=== PATIENT | female | born 2000 | race Caucasian/White ===

== ENCOUNTER 2023-11-01 14:13 | Inpatient (IN) | payer OTHER, SELFPAY ==
--- NOTE | ~2023-11-01 | CT_ITS ---
EXAMINATION: CT ABDOMEN AND PELVIS WITHOUT CONTRAST CLINICAL INFORMATION: Lower abdominal pain COMPARISON: None available. TECHNIQUE: Multidetector volumetric imaging was performed from the superior aspect of the liver through the pubic symphysis. Sagittal and coronal reformatted images were obtained on the technologist's workstation. This CT examination was performed using dose optimization techniques as appropriate, variously including the following: *Automated exposure control *Adjustment of mA and/or kV according to patient size (this includes techniques or standardized protocols for targeted exams where dose is matched to indication/reason for exam; i.e. extremities or head) *Use of iterative reconstruction technique DLP: 594 mGy-cm FINDINGS: LUNG BASES: The visualized lung bases are unremarkable. LIVER, GALLBLADDER, AND BILIARY TREE: The liver is normal in size, shape, and attenuation. No focal hepatic lesion or biliary ductal dilatation is present. The gallbladder is unremarkable with no evidence of radiopaque gallstones, gallbladder wall thickening, or obvious pericholecystic inflammatory changes. PANCREAS: Unremarkable. SPLEEN: Unremarkable. ADRENAL GLANDS: Unremarkable. KIDNEYS AND URETERS: The kidneys are normal in size, shape, and attenuation. No hydronephrosis, hydroureter, or calculi seen. No perinephric stranding. BLADDER: Unremarkable. GASTROINTESTINAL TRACT: There is abnormal rotation of the bowel. The cecum is located in the left mid abdomen. There are abnormal loops of small bowel. There are dilated fluid-filled loops of small bowel. There is fecalalization of proximal small bowel There are areas of small bowel wall thickening. There is edematous change in the small bowel mesentery. There are upper normal-size small bowel mesentery lymph nodes. Small amount of fluid in the pelvis. Large bowel is normal appearing. Appendix is seen.. ABDOMINAL WALL: No significant hernia is appreciated. LYMPH NODES: Normal. VASCULAR: Unremarkable. PELVIC VISCERA: Unremarkable. OSSEOUS STRUCTURES: Unremarkable. CT/CT abdomen pelvis wo IV con IMPRESSION: Abnormal small bowel. Small bowel is dilated, fluid-filled with small bowel feces sign. There are areas of wall thickening of the small bowel, edematous change in the small bowel mesentery and upper normal-size small bowel mesentery lymph nodes. This probably represents enteritis. Partial small bowel obstruction cannot be excluded and imaging follow-up recommended. Abnormal bowel rotation with the cecum located in the left mid abdomen. Fleischner guidelines were followed.
--- NOTE | ~2023-11-01 | CT_ITS ---
EXAMINATION: CT ABDOMEN AND PELVIS WITH CONTRAST CLINICAL INFORMATION: Rule out complete small bowel obstruction COMPARISON: CT abdomen and pelvis 11/01/2023 TECHNIQUE: Multidetector volumetric images were obtained from the superior aspect of the liver through the pubic symphysis following administration 85 mL of Omnipaque 350 intravenous contrast. Sagittal and coronal reformatted images were obtained on the technologist's workstation. Oral contrast: Yes This CT examination was performed using dose optimization techniques as appropriate, variously including the following: *Automated exposure control *Adjustment of mA and/or kV according to patient size (this includes techniques or standardized protocols for targeted exams where dose is matched to indication/reason for exam; i.e. extremities or head) *Use of iterative reconstruction technique DLP: 648 mGy-cm FINDINGS: LUNG BASES: The visualized lung bases are unremarkable. LIVER, GALLBLADDER, AND BILIARY TREE: The liver is normal in size, shape, and attenuation. No focal hepatic lesion or biliary ductal dilatation is present. The gallbladder is unremarkable with no evidence of radiopaque gallstones, gallbladder wall thickening, or obvious pericholecystic inflammatory changes. PANCREAS: Unremarkable. SPLEEN: Unremarkable. ADRENAL GLANDS: Unremarkable. KIDNEYS AND URETERS: The kidneys are normal in size, shape, and attenuation. No hydronephrosis, hydroureter, or calculi seen. No perinephric stranding. BLADDER: Unremarkable. GASTROINTESTINAL TRACT: Again there is abnormal rotation of the bowel with the cecum located in the left lower quadrant. There is marked thickening of multiple loops of small bowel in the right lower quadrant and pelvis. Contrast passes distally into the cecum. ABDOMINAL WALL: No significant hernia is appreciated. LYMPH NODES: Prominent mesenteric lymph nodes are again seen. Small volume of fluid in the pelvis. VASCULAR: Unremarkable. PELVIC VISCERA: Unremarkable. OSSEOUS STRUCTURES: Unremarkable. CT/CT abdomen pelvis w IV con IMPRESSION: 1. Again there is malrotation of the bowel without complete bowel obstruction. Contrast passes into the cecum which is in the left lower quadrant. 2. Markedly thickened loops of small bowel in the right lower quadrant and prominent mesenteric lymph nodes, consistent with enteritis. Fleischner guidelines were followed.
[2023-11-01 14:39] VITALS: BP 143/80; PULSE 98; RESP 16; TEMP 37.2; O2SAT 99; BMI 30.5
--- NOTE | 2023-11-01 14:40 | ED.ABDPAIN ---
HPI - Abdominal Pain General Chief Complaint: Abdominal Pain Stated Complaint: Severe abd pain Time Seen by Provider: 11/01/23 21:52 Source: patient Mode of arrival: ambulatory Limitations: no limitations History of Present Illness HPI narrative: Patient with history of Gastroschisis usually have regular bowel movements for last 4 days been feeling constipated with diffuse abdominal pain no nausea no vomiting no urinary symptoms was seen at urgent care center started on laxative without much relief patient has difficulty in walking because of pain pain is mostly diffuse more on the left side patient has been having diarrhea since started taking MiraLax for last 2 days had slight nausea but feels hungry Related Data Allergies Allergy/AdvReac Type Severity Reaction Status Date / Time No Known Allergies Allergy Unverified 11/01/23 14:39 Review of Systems Review of Systems Yes all other systems are reviewed and are negative [facility] Past Medical History Medical History Gastroschisis Social History Social History Alcohol intake: current Alcohol intake frequency: a few times a week Alcohol type: wine Smoked in Last 30 Days: No Use of substances other than those prescribed or required for medical reasons: No Advance Directives: No Advance Directives Information Provided: No Patient : No Physical Exam ED Vital Signs: Vital Signs - 24 hr 11/01/23 14:39 11/01/23 22:08 Temperature 98.9 F 99.0 F Pulse Rate 98 74 Respiratory Rate 16 17 Blood Pressure 143/80 H 131/74 Pulse Oximetry 99 99 Oxygen Delivery Method Room Air Room Air BMI result Body Mass Index 30.5 Appearance: Alert. Oriented X3. No acute distress. Eyes: PERRLA, No Nystagmus ENT: Pharynx normal. Oral Mucosa moist Neck: Normal inspection. Neck supple. CVS: Normal heart rate and rhythm. Pulses normal. Respiratory: No respiratory distress. Equal air entry bilateral, no wheezing/rales/rhonchi Abdomen: Soft, diffuse tenderness lower abdomen rebound tenderness no guarding Bowel sounds are present, no mass palpable, no CVA tenderness Skin: Skin warm and dry. Normal skin color. Normal skin turgor. Extremities: No lower extremity edema. No calf tenderness Neuro: Oriented X 3. Course Course Course Narrative: This is a rapid medical exam. Deferred additional HPI, ROS, PE to primary provider. 23 yo female here with complaints of lower abdominal pain since Sunday w/ constipation, Took laxative and using miralax but only having small BM. No vomiting, fever, urinary symptoms, vaginal discharge. LMP last week Low suspicion for /STI Will need labs, UA, ur preg VSS Medical Decision Making Medical Decision Making [facility] Narrative: Patient with nonspecific abdominal pain with CT scan showing edematous small bowel with partial bowel obstruction case discussed with Dr. Benjamin surgeon will admit the patient for observation. Differential Diagnosis Differential Diagnoses: The differential diagnosis associated with the presentation includes Colitis/ileus/viral syndrome Admission/Observation Consideration of admission/observation: Escalation of care including admission/observation considered Consult Healthcare Provider Management of the patient was discussed with: Radio Program Director Surgeon Dr. Benjamin Lab Data [facility] Lab Attestation statement: I reviewed the patient's lab results. 11/01/23 15:27 11/01/23 15:27 Labs: Lab Results 11/01/23 11/01/23 Range/Units 15:27 21:53 WBC 10.9 H (4.8-10.8) X10*3/uL RBC 4.60 (4.20-5.50) X10*6/uL Hgb 13.7 (12.0-16.0) g/dl Hct 40.6 (37.0-47.0) % MCV 88.3 (80.0-98.0) fL MCH 29.8 (27.0-33.0) pg MCHC 33.7 (31.0-35.0) g/dl RDW 12.7 (11.0-16.0) % Plt Count 163 (160-400) X10*3/uL MPV 13.0 H (9.4-12.3) fL Immature Gran % (Auto) 0.2 (0.0-0.4) % Neut % (Auto) 76.0 H (45-73) % Lymph % (Auto) 16.6 L (20-40) % Banks % (Auto) 6.0 (2-11) % Eos % (Auto) 1.0 (0-4) % Baso % (Auto) 0.2 (0-2) % Lymph # (Auto) 1.8 (1.2-4.9) X10*3/uL [place] # (Auto) 0.7 (0.1-1.2) X10*3/uL Eos # (Auto) 0.1 (0.0-0.4) X10*3/uL Baso # (Auto) 0.0 (0.0-0.2) X10*3/uL Abs Immat Gran (auto) 0.02 (0.00-0.03) X10*3/uL Absolute Neuts (auto) 8.3 (2.0-8.3) x10*3/uL Absolute Nucleated RBC 0.000 (0.0-0.012) X10*3/uL Nucleated RBC % (auto) 0.0 (0.0-0.2) /100WBC Sodium 139 (135-145) mmol/L Potassium 4.1 (3.3-5.1) mmol/L Chloride 100 (96-108) mmol/L Carbon Dioxide 25 (22-29) mmol/L Anion Gap 18 (12-20) BUN 7 L (9-16) mg/dL Creatinine 0.77 (0.5-1.4) mg/dL Estim Creat Clear Calc 127.5 Estimated GFR > 60 Random Glucose 81 (60-115) mg/dL Calcium 9.7 (8.4-10.2) mg/dL Total Bilirubin 0.8 (0.0-1.0) mg/dL Direct Bilirubin 0.3 (0.0-0.5) mg/dL AST 14 (5-31) U/L ALT 9 (0-31) U/L Alkaline Phosphatase 44 (39-117) U/L Total Protein 8.2 H (6.5-8.0) g/dL Albumin 4.6 (3.5-5.0) g/dL Urine Color Yellow Urine Appearance Clear Urine pH 5.5 (5.0-9.0) Ur Specific [place] 1.020 (1.005-1.025) Urine Protein Negative (Neg-Trace) mg/dL Urine Glucose (UA) Negative (Negative) mg/dL Urine Ketones Negative (Negative) mg/dL Urine Blood Large (3+) H (Negative) Urine Nitrite Negative (Negative) Ur Leukocyte Esterase Negative (Negative) Urine RBC >20 H (0-2) /HPF Urine WBC 0-5 (0-5) /HPF Ur Squamous Epith Cells 0-2 (0-2) /HPF Urine Bacteria None Seen (None Seen) Hyaline Casts 0-2 (0-2) /LPF Urine Test NEGATIVE (NEGATIVE) Independent Interpretation I performed an independent interpretation of an: CT Scan Radiology Impression Discussion of test interpretation with radiology: I have reviewed the radiologist's reading. Radiologist Impression: CT/CT abdomen pelvis wo IV con IMPRESSION: Abnormal small bowel. Small bowel is dilated, fluid-filled with small bowel feces sign. There are areas of wall thickening of the small bowel, edematous change in the small bowel mesentery and upper normal-size small bowel mesentery lymph nodes. This probably represents enteritis. Partial small bowel obstruction cannot be excluded and imaging follow-up recommended. Abnormal bowel rotation with the cecum located in the left mid abdomen. Fleischner guidelines were followed. Medications Administered Generic Name Dose Route Start Last Admin Trade Name Freq PRN Reason Stop Dose Admin Acetaminophen 1,000 mg in 100 mls @ 400 mls/hr 11/01/23 23:45 11/02/23 00:48 Ofirmev IV 11/02/23 17:59 400 mls/hr Q6H YEHUDA Administration Dextrose/Lactated Ringer's 1,000 mls @ 100 mls/hr 11/01/23 23:45 11/02/23 00:51 D5lr IVCONT 100 mls/hr .Q10H YEHUDA Administration Sodium Chloride 3 ml 11/02/23 00:00 11/02/23 00:55 0.9 % Sodium Chloride Flush 3 Ml Syringe IVFLUSH Not Given QSHIFT [facility] Discharge Plan Discharge Clinical Impression: Partial obstruction of small intestine Patient Disposition: Admitted As Inpatient
[2023-11-01 15:32] LABS: MANUAL DIFF FLAG NO
[2023-11-01 15:46] LABS: Alanine Aminotransferase 9 U/L (0-31); Albumin Level 4.6 g/dL (3.5-5.0); Alkaline Phosphatase 44 U/L (39-117); Anion Gap 18 (12-20); Aspartate Amino Transferase 14 U/L (5-31); Bilirubin Direct 0.3 mg/dL (0.0-0.5); Bilirubin Total 0.8 mg/dL (0.0-1.0); Blood Urea Nitrogen 7 mg/dL (9-16); Calcium 9.7 mg/dL (8.4-10.2); Carbon Dioxide 25 mmol/L (22-29); Chloride 100 mmol/L (96-108); Creatinine Clr Calc Pharmacy 127.5; Estimated Glomerular Filt Rate > 60; Glucose Random 81 mg/dL (60-115); Potassium 4.1 mmol/L (3.3-5.1); Sodium 139 mmol/L (135-145); Total Protein 8.2 g/dL (6.5-8.0)
[2023-11-01 16:35] LABS: Basophils Percent Auto 0.2 % (0-2); Eosinophils Absolute Auto 0.1 X10*3/uL (0.0-0.4); Hematocrit 40.6 % (37.0-47.0); Hemoglobin 13.7 g/dl (12.0-16.0); Imm Gran Abs Auto 0.02 X10*3/uL (0.00-0.03); Imm Gran Pct Auto 0.2 % (0.0-0.4); Lymphocytes Absolute Auto 1.8 X10*3/uL (1.2-4.9); Lymphocytes Percent Auto 16.6 % (20-40); Mean Corpuscular HGB Conc 33.7 g/dl (31.0-35.0); Mean Corpuscular Hemoglobin 29.8 pg (27.0-33.0); Mean Corpuscular Volume 88.3 fL (80.0-98.0); Monocytes Absolute Auto 0.7 X10*3/uL (0.1-1.2); Neutrophils Absolute Auto 8.3 x10*3/uL (2.0-8.3); Platelet Count 163 X10*3/uL (160-400); Red Cell Distribution Width 12.7 % (11.0-16.0); White Blood Count 10.9 X10*3/uL (4.8-10.8)
[2023-11-01 21:59] LABS: Appearance Urine Clear; Color Urine Yellow; Glucose Urine UA Negative (Negative); Leukocyte Esterase Urine Negative (Negative); Nitrite Urine Negative (Negative); PH 5.5 (5.0-9.0); UMIC TRIGGER UACC YES; Urine Blood Large (3+) (Negative); Urine Ketones Negative (Negative); Urine Protein Negative (Neg-Trace)
[2023-11-01 22:01] LABS: UPreg QC Valid YES; Urine Pregnancy NEGATIVE (NEGATIVE)
[2023-11-01 22:04] LABS: Bacteria Urine None Seen (None Seen); Hyaline Casts Urine 0-2 /LPF (0-2); RBC Urine >20 /HPF (0-2); Squamous Epithelial Cell Urine 0-2 /HPF (0-2); WBC Urine 0-5 /HPF (0-5)
[2023-11-01 22:08] VITALS: BP 131/74; PULSE 74; RESP 17; TEMP 37.2; O2SAT 99
--- NOTE | 2023-11-01 22:46 | PC.NURSE ---
Pt aox4 resting at the bedside. No apparent distress noted. VSS. Reports RUQ and LUQ pain. Denies N/V at this time but had a small vomiting episode earlier today. CT-scan done. Pending results. Pt is aware of plan of care.
[2023-11-01 23:51] VITALS: BP 122/61; PULSE 70; RESP 17; TEMP 36.7; O2SAT 99
[2023-11-02] MEDS: Acetaminophen 1,000 MG/100 ML PIGGYBACK 400 MG IV ×4 (00:48→16:44)
[2023-11-02] MEDS: Dextrose 5 % and Lactated Ring 1,000 ML 100 ML IVCONT ×3 (00:51→19:18)
[2023-11-02 01:08] LABS: Lactic Acid 1.2 mmol/L (0.5-2.0)
[2023-11-02 02:27] VITALS: BP 116/67; PULSE 68; RESP 17; O2SAT 99
[2023-11-02] MEDS: HYDROmorphone HCl 0.5 MG/0.5 ML SYRINGE 0.25 MG IVPUSH ×3 (02:28→17:20)
--- NOTE | 2023-11-02 02:29 | PC.NURSE ---
Pt medicated per MAR with PRN for continued pain
[2023-11-02 03:55] VITALS: BP 106/59; PULSE 75; RESP 16; TEMP 36.8; O2SAT 98
[2023-11-02 06:00] VITALS: BP 106/52; PULSE 81; RESP 20; TEMP 36.6; O2SAT 96
--- NOTE | 2023-11-02 07:44 | PM.HPGS ---
History of Present Illness History of Present Illness Date of Service: 11/02/23 <Nisha Montemayor PA-C - Last Filed: 11/02/23 08:04> 11/02/23 <Jovon Benjamin MD - Last Filed: 11/02/23 09:58> Chief complaint: Small bowel obstruction <Nisha Montemayor PA-C - Last Filed: 11/02/23 08:04> Narrative: Patty Noyola is a 23 year old female with history of gastroschisis who presented to the ED with complaints of abdominal pain. She reports the pain began Sunday. It started in the lower abdomen and then became more diffuse. She thought she was just constipated and took miralax with no improvement in pain. She also endorsed mild nausea at the beginning of the week but denies fevers, chills, vomiting. She denies sick contacts. She denied diarrhea to web content writer but endorsed this to the ED provider. Work up in the ED included CBC, BMP which was significant for a mildly elevated WBC count of 10.7. CT scan abd/pelvis was obtained which showed dilated small bowel with areas of wall thickening, edematous change in the small bowel mesentery and upper normal-size small bowel mesentery lymph nodes and abnormal bowel rotation with the cecum located in the left mid abdomen. She reports some improvement in her abdominal pain with medication this morning. She denies flatus. She denies similar episodes of pain. <Nisha Montemayor PA-C - Last Filed: 11/02/23 08:04> Review of Systems Constitutional: Constitutional: Denies chills, Denies fever(s) and Denies weight loss <Nisha Montemayor PA-C - Last Filed: 11/02/23 08:04> ENT: Denies dizziness <MADELINE Pacheco Last Filed: 11/02/23 08:04> Cardiovascular: Cardiovascular: Denies chest pain and Denies dyspnea <MADELINE Pacheco Last Filed: 11/02/23 08:04> Respiratory: Respiratory: Denies cough and Denies dyspnea <MADELINE Pacheco Last Filed: 11/02/23 08:04> Gastrointestinal: Gastrointestinal: Reports as per HPI and Denies vomiting <Nisha Montemayor PA-C Last Filed: 11/02/23 08:04> Genitourinary: Genitourinary: Denies dysuria <MADELINE Pacheco Last Filed: 11/02/23 08:04> Integumentary/Breasts: Skin/Breast: Denies rash and Denies jaundice <Nisha Montemayor PA-C Last Filed: 11/02/23 08:04> Neurologic: Denies dizziness <MADELINE Pacheco Last Filed: 11/02/23 08:04> PMFSH Past Medical History Medical History: Medical History Gastroschisis <Nisha Montemayor PA-C Last Filed: 11/02/23 08:04> Social History Social History: Social History Household Members: Family Housing: House Do you presently have visiting nurse or other home services: No Alcohol intake: current Alcohol intake frequency: a few times a week Alcohol type: wine Patient Tobacco Use Status: Never used Tobacco Smoked in Last 30 Days: No Use of substances other than those prescribed or required for medical reasons: No Have you been hit, kicked, punched, or otherwise hurt by someone within the past year? If so, by whom?: No Do you feel safe in your current relationship?: No Is there a partner from a previous relationship who is making you feel unsafe now?: No Are you made to feel afraid or neglected: No Advance Directives: No Advance Directives Information Provided: No Advance Directives on File: Yes Do you have thoughts of harming others: None Do you have a plan to hurt others: No Plan Recently lost weight without trying: No How much weight loss: Unsure Eating poorly because of decreased appetite: No Nutrition screen score: 2 Patient : No : No Poor oral hygiene: No service: No <MADELINE Pacheco Last Filed: 11/02/23 08:04> Meds Allergies/Adverse reactions: Allergies Allergy/AdvReac Type Severity Reaction Status Date / Time No Known Allergies Allergy Unverified 11/01/23 14:39 <MADELINE Pacheco Last Filed: 11/02/23 08:04> Active Medications: Current Medications Hydromorphone HCl (Hydromorphone Hcl 0.5 Mg/0.5 Ml Syringe) 0.25 mg IVPUSH Q3H PRN; Protocol PRN Reason: Pain, Severe (Pain Scale 7-10) Last Admin: 11/02/23 06:53 Dose: 0.25 mg Acetaminophen (Ofirmev) 1,000 mg in 100 mls @ 400 mls/hr IV Q6H YEHUDA Stop: 11/02/23 17:59 Last Admin: 11/02/23 05:50 Dose: 400 mls/hr Dextrose/Lactated Ringer's (D5lr) 1,000 mls @ 100 mls/hr IVCONT .Q10H [facility] Last Admin: 11/02/23 00:51 Dose: 100 mls/hr Ondansetron HCl (Ondansetron Hcl 4 Mg/2 Ml Vial) 4 mg IVPUSH QID PRN PRN Reason: Nausea Sodium Chloride (0.9 % Sodium Chloride Flush 3 Ml Syringe) 3 ml IVFLUSH QSHIFT [facility] Last Admin: 11/02/23 00:55 Dose: Not Given <Nisha Montemayor PA-C - Last Filed: 11/02/23 08:04> Home medications: Home Medications Medication Instructions Recorded Confirmed Last Taken Type No Known Home Meds 11/02/23 11/02/23 Unknown History <MADELINE Pacheco Last Filed: 11/02/23 08:04> Physical Exam Vital Signs: Vital Signs: Last Vital Signs Temp 97.9 F 11/02/23 06:00 Pulse 81 11/02/23 06:00 Resp 20 11/02/23 06:00 BP 106/52 L 11/02/23 06:00 Pulse Ox 96 11/02/23 06:00 O2 Del Method Room Air 11/02/23 06:00 BMI result Body Mass Index 30.5 <MADELNIE Pacheco Last Filed: 11/02/23 08:04> Const: General: comfortable, no acute distress and alert <MADELINE Pacheco Last Filed: 11/02/23 08:04> Orientation/consciousness: patient oriented x3 <Nisha Montemayor PA-C Ami Last Filed: 11/02/23 08:04> Resp: Effort & Inspection: normal respiratory effort <Nisha Montemayor PA-C Ami Last Filed: 11/02/23 08:04> GI: Inspection: No distended and Yes scar (mid abdomen lateral to umbilicus on right ) <Nisha Montemayor PA-C Ami Last Filed: 11/02/23 08:04> Palpation (GI): Soft to palpation, Tenderness to palpation present (GI) periumbilically, no guarding and not rigid <Nisha Montemayor PA-C Ami Last Filed: 11/02/23 08:04> Percussion: Yes normal to percussion <Nisha Montemayor PA-C Ami Last Filed: 11/02/23 08:04> Skin: General skin exam: no rashes or lesions noted <Nisha Montemayor PA-C Ami Last Filed: 11/02/23 08:04> Neuro: General: patient oriented x3 and moves all extremities <Nisha Montemayor PA-C Ami Last Filed: 11/02/23 08:04> Results Results Labs: Short CBC 11/01/23 Range/Units 15:27 WBC 10.9 H (4.8-10.8) X10*3/uL Hgb 13.7 (12.0-16.0) g/dl Hct 40.6 (37.0-47.0) % Plt Count 163 (160-400) X10*3/uL BMP 11/01/23 15:27 Sodium 139 Potassium 4.1 Chloride 100 Carbon Dioxide 25 BUN 7 L Creatinine 0.77 Calcium 9.7 Liver Function 11/01/23 Range/Units 15:27 Total Bilirubin 0.8 (0.0-1.0) mg/dL Direct Bilirubin 0.3 (0.0-0.5) mg/dL AST 14 (5-31) U/L ALT 9 (0-31) U/L Alkaline Phosphatase 44 (39-117) U/L Albumin 4.6 (3.5-5.0) g/dL Urine 11/01/23 Range/Units 21:53 Urine Color Yellow Urine Appearance Clear Urine pH 5.5 (5.0-9.0) Ur Specific [place] 1.020 (1.005-1.025) Urine Protein Negative (Neg-Trace) mg/dL Urine Glucose (UA) Negative (Negative) mg/dL Urine Test NEGATIVE (NEGATIVE) <Nisha Montemayor PA-C - Last Filed: 11/02/23 08:04> Abdomen CT scan report/results: report reviewed and image reviewed <Nisha Montemayor PA-C - Last Filed: 11/02/23 08:04> Assessment and Plan (1) Enteritis: Status: Acute <Nisha Montemayor PA-C - Last Filed: 11/02/23 08:04> 23 year old female with hx of gastroschisis who presented with abdominal pain for 4 days with imaging showing dilated small bowel with wall thickening. She was admitted to the surgical service for observation. Patient is nontoxic appearing and reports improvement in her symptoms. Her abdomen is benign with moderate periumbilical tenderness and is nondistended. Clinical picture more suggestive of enteritis. Will advance to clear liquids and then further as tolerated. Patient and mother comfortable with plan. <Nisha Montemayor PA-C - Last Filed: 11/02/23 08:04> 23 year old female with hx of gastroschisis who presented with abdominal pain for 4 days with imaging showing dilated small bowel with wall thickening. She was admitted to the surgical service for observation. Patient is nontoxic appearing and reports improvement in her symptoms. Her abdomen is benign with moderate periumbilical tenderness and is nondistended. Clinical picture more suggestive of enteritis. Will advance to clear liquids and then further as tolerated. Patient and mother comfortable with plan. Patient seen and examined. I agree with the above history, physical, assessment and plan. Small-bowel dilatation and wall thickening as noted above. Agree with starting clear liquids. If the patient is having difficulty with liquids or if increased pain develops, we will need contrast study, perhaps CT with oral contrast. <Jovon Benjamin MD - Last Filed: 11/02/23 09:58> Quality Stroke Does the patient have a stroke diagnosis?: No <Jovon Benjamin MD - Last Filed: 11/02/23 09:58> VTE Prior VTE?: No <Jovon Benjamin MD - Last Filed: 11/02/23 09:58> VTE Risk Level:: Surgical - low <Nisha Montemayor PA-C - Last Filed: 11/02/23 08:04> VTE Device Contraindication: N/A - Device Ordered <Nisha Montemayor PA-C - Last Filed: 11/02/23 08:04> VTE Drug Contraindication: Treatment Not Indicated <Nisha Montemayor PA-C - Last Filed: 11/02/23 08:04> Procedures Date of Service Date of Service: 11/02/23 <Nisha Montemayor PA-C - Last Filed: 11/02/23 08:04> 11/02/23 <Jovon Benjamin MD - Last Filed: 11/02/23 09:58>
--- NOTE | 2023-11-02 08:26 | PHA.MEDREC ---
Pharmacy Consult ? Medication Reconciliation Pharmacy has completed the medication reconciliation. Patient confirms that she is taking no medications.
[2023-11-02 09:05] VITALS: BP 110/61; PULSE 64; RESP 18; TEMP 36.7; O2SAT 99
--- NOTE | 2023-11-02 09:37 | MHC.CM.PN ---
met with pt and her mom pt is independent cm not indicated
[2023-11-02 15:17] VITALS: BP 114/57; PULSE 70; RESP 20; TEMP 36.6; O2SAT 99
[2023-11-02] MEDS: oxyCODONE HCl Immed Release 5 MG TABLET PO (16:33)
[2023-11-02 19:27] VITALS: BP 95/53; PULSE 70; RESP 16; TEMP 36.1; O2SAT 99
[2023-11-03 03:20] VITALS: BP 94/52; PULSE 93; RESP 16; TEMP 36; O2SAT 94
[2023-11-03] MEDS: Dextrose 5 % and Lactated Ring 1,000 ML 100 ML IVCONT ×3 (03:21→20:33)
[2023-11-03] MEDS: HYDROmorphone HCl 0.5 MG/0.5 ML SYRINGE 0.25 MG IVPUSH ×2 (06:12→13:20)
[2023-11-03 08:00] VITALS: BP 110/56; PULSE 76; RESP 16; TEMP 36.4; O2SAT 98
--- NOTE | 2023-11-03 10:31 | PM.PNGS ---
Subjective Subjective Date of Service: 11/03/23 Interval history: Patient is still having abdominal pain relieved with IV meds. Passing some flatus and a little loose stool. Tolerating liquids. Mother is present and concern that pain is only relieved with IV analgesia. Physical Exam Vital Signs: Vital Signs: Last Vital Signs Temp 97.6 F 11/03/23 08:00 Pulse 76 11/03/23 08:00 Resp 16 11/03/23 08:00 BP 110/56 L 11/03/23 08:00 Pulse Ox 98 11/03/23 08:00 O2 Del Method Room Air 11/03/23 08:00 BMI result Body Mass Index 30.5 GI: Other: Mildly distended abdomen. Mild lower abdominal tenderness but without any evidence of guarding, rebound, rigidity. Abdominal wall scar Objective Data Active Medications Hydromorphone HCl (Hydromorphone Hcl 0.5 Mg/0.5 Ml Syringe) 0.25 mg IVPUSH Q3H PRN; Protocol PRN Reason: Pain, Severe (Pain Scale 7-10) Last Admin: 11/03/23 06:12 Dose: 0.25 mg Documented By: GAURAV Dextrose/Lactated Ringer's (D5lr) 1,000 mls @ 100 mls/hr IVCONT .Q10H YEHUDA Last Admin: 11/03/23 03:21 Dose: 100 mls/hr Documented By: GAURAV Ondansetron HCl (Ondansetron Hcl 4 Mg/2 Ml Vial) 4 mg IVPUSH QID PRN PRN Reason: Nausea Oxycodone HCl (Oxycodone Hcl Immed Release 5 Mg Tablet) 5 mg PO Q4H PRN PRN Reason: Pain, Moderate(Pain Scale 4-6) Last Admin: 11/02/23 16:33 Dose: 5 mg Documented By: ASHISH Sodium Chloride (0.9 % Sodium Chloride Flush 3 Ml Syringe) [address] [facility] Last Admin: 11/03/23 07:08 Dose: Not Given Documented By: NELY Non-Admin Reason: IV Running Labs 11/01/23 15:27 11/01/23 15:27 Procedures Date of Service Date of Service: 11/03/23 Progress Note: A&P Assessment and plan (1) Partial obstruction of small intestine: Status: Acute (2) Enteritis: Status: Acute Plan UnFortunately, no small-bowel follow-through can be done on the weekend because there was no radiologist in-house. I will order CT scan of abdomen pelvis with p.o. contrast to rule out SBO. Further interventions studies will be directed by the results of the above-mentioned scan. Also repeat labs. Encourage incentive spirometry, out of bed. Time Spent With Patient Time: Total time managing care of this patient today ____ minutes. Quality Stroke Does the patient have a stroke diagnosis?: No VTE Prior VTE?: No VTE Risk Level:: Surgical - low VTE Device Contraindication: N/A - Device Ordered VTE Drug Contraindication: Treatment Not Indicated
[2023-11-03 11:15] LABS: Anion Gap 11 (12-20); Carbon Dioxide 28 mmol/L (22-29); Chloride 107 mmol/L (96-108); Potassium 3.6 mmol/L (3.3-5.1); Sodium 142 mmol/L (135-145)
[2023-11-03] MEDS: iohexoL 350 MG/ML 100 ML INFUS..BTL 85 ML IV (13:46)
--- NOTE | 2023-11-03 15:01 | PC.NURSE ---
Pt states she noticed bright red blood on toilet paper when wiping post voiding, no blood or clots noted in urine, Pt denies having menstrual cycle but states her last menstrual cycle was last week, no blood noted with bowel movements, Pt denies worsening abd pain, Surgeon Dr Rodriguez made aware, no new orders at this time, Pt to have repeat CT of abdomen to rule out owel obstruction, Pt is ambulating in the hallway with family.
[2023-11-03 15:09] VITALS: BP 103/58; PULSE 62; RESP 18; TEMP 36.3; O2SAT 99
--- NOTE | 2023-11-03 16:27 | PC.NURSE ---
Pt and family requesting to speak with doctor regarding cat scan results and plan of care, this RN reached out to Dr Rodriguez, per MD he will see if report has been read, This RN passed along Pt phone number if unable to see Pt at bedside with results.
[2023-11-03 19:13] VITALS: BP 102/59; PULSE 64; RESP 16; TEMP 36.4; O2SAT 99
[2023-11-04 04:00] VITALS: BP 112/56; PULSE 82; RESP 16; TEMP 36.1; O2SAT 98
[2023-11-04 07:26] VITALS: BP 123/59; PULSE 73; RESP 16; TEMP 36.1; O2SAT 98
--- NOTE | 2023-11-04 13:08 | P.PNGS_ITS ---
Subjective Subjective Date of Service: 11/04/23 Interval history: Patient evaluated with the family present. She is passing flatus. She is tolerating her liquid diet. Patient said she had a small streak of bloody stool. No history of hemorrhoids. Never had colonoscopy before. CT scan with oral contrast demonstrates known bowel malrotation with contrast entering the cecum with no evidence well obstruction. Findings consistent with enteritis Physical Exam 2 Vital Signs: Vital Signs: Last Vital Signs Temp 97 F 11/04/23 07:26 Pulse 73 11/04/23 07:26 Resp 16 11/04/23 07:26 BP 123/59 L 11/04/23 07:26 Pulse Ox 98 11/04/23 07:26 O2 Del Method Room Air 11/04/23 07:26 BMI result Body Mass Index 30.5 GI: Other: Abdomen soft, minimally distended. Mild lower abdominal tenderness but with no evidence of any guarding, rebound, or rigidity. Objective Data Active Medications Hydromorphone HCl (Hydromorphone Hcl 0.5 Mg/0.5 Ml Syringe) 0.25 mg IVPUSH Q3H PRN; Protocol PRN Reason: Pain, Severe (Pain Scale 7-10) Last Admin: 11/03/23 13:20 Dose: 0.25 mg Documented By: NELY Ondansetron HCl (Ondansetron Hcl 4 Mg/2 Ml Vial) 4 mg IVPUSH QID PRN PRN Reason: Nausea Oxycodone HCl (Oxycodone Hcl Immed Release 5 Mg Tablet) 5 mg PO Q4H PRN PRN Reason: Pain, Moderate(Pain Scale 4-6) Last Admin: 11/02/23 16:33 Dose: 5 mg Documented By: ASHISH Sodium Chloride (0.9 % Sodium Chloride Flush 3 Ml Syringe) 3 ml IVFLUSH [facility] Last Admin: 11/04/23 07:04 Dose: Not Given Documented By: NELY Non-Admin Reason: Previously Administered Labs 11/01/23 15:27 11/03/23 10:46 Procedures Date of Service Date of Service: 11/04/23 Progress Note: A&P Assessment and plan (1) Enteritis: Status: Acute Plan Patient wishes to be discharged home. We will make appropriate arrangements. Follow-up with Dr. Benjamin and with PMD. All questions answered Time Spent With Patient Time: Total time managing care of this patient today ____ minutes. Quality Stroke Does the patient have a stroke diagnosis?: No VTE Prior VTE?: No VTE Risk Level:: Surgical - low VTE Device Contraindication: N/A - Device Ordered VTE Drug Contraindication: Treatment Not Indicated
--- NOTE | 2023-11-04 13:24 | MHC.CM.PN ---
EMR reviewed. Patient medically cleared for dc home self care. Family is at the beside to transport.
--- NOTE | 2023-11-05 09:43 | P.DS_ITS ---
DS: Providers Provider Date of Service: 11/04/23 Date of admission: 11/01/23 22:58 Primary care physician: Unknown Physician Attending physician on admission: Jovon Benjamin Attending physician on discharge: John Rodriguez DS: Diagnosis Discharge Diagnosis (1) Enteritis: Status: Acute DS: Summary Hospital Course Hospital Course: HPI AT ADMISSION: Patty Noyola is a 23 year old female with history of gastroschisis who presented to the ED with complaints of abdominal pain. She reports the pain began Sunday. It started in the lower abdomen and then became more diffuse. She thought she was just constipated and took miralax with no improvement in pain. She also endorsed mild nausea at the beginning of the week but denies fevers, chills, vomiting. She denies sick contacts. She denied diarrhea to sports book writer but endorsed this to the ED provider. Work up in the ED included CBC, BMP which was significant for a mildly elevated WBC count of 10.7. CT scan abd/pelvis was obtained which showed dilated small bowel with areas of wall thickening, edematous change in the small bowel mesentery and upper normal- size small bowel mesentery lymph nodes and abnormal bowel rotation with the cecum located in the left mid abdomen. She reports some improvement in her abdominal pain with medication this morning. She denies flatus. She denies similar episodes of pain. HOSPITAL COURSE: She was admitted to the surgical service for observation. Clinical picture was more suggestive of enteritis. She was nontoxic appearing with a benign abdomen. She was given clear liquids. She reportedly had difficulty with controlling her abdominal pain without IV analgesics and her mom became very worried. CT scan abd/pelvis with oral contrast was therefore obtained which showed contrast passes into the cecum and she had markedly thickened loops of small bowel in the right lower quadrant and prominent mesenteric lymph nodes, consistent with enteritis. Her diet was advanced. She felt improved the following day and was tolerating a solid diet without nausea vomiting or worsening abd pain. She felt ready for discharge. She was discharged to home on 11/04/23. She is to follow up in the office with Dr. Benjamin in 1 week. Status at Discharge Functional status at discharge: independent ambulation Overall status at discharge: patient is back to baseline Time Attestation Discharge coordination time: Less than 30 minutes Quality: Safe Use of Opioids Does Pt have an Active Cancer Diagnosis on the Problem List?: No Quality: Stroke Does the patient have a stroke diagnosis?: No Physical Exam Vital Signs: Vital Signs: Last Vital Signs Temp 97 F 11/04/23 07:26 Pulse 73 11/04/23 07:26 Resp 16 11/04/23 07:26 BP 123/59 L 11/04/23 07:26 Pulse Ox 98 11/04/23 07:26 O2 Del Method Room Air 11/04/23 07:26 BMI result Body Mass Index 30.5 Const: General: comfortable, no acute distress and alert GI: Inspection: Yes distended (mildly) Palpation (GI): Soft to palpation, Tenderness to palpation present (GI) (mild lower abdominal ), no guarding and not rigid Discharge Plan Discharge Anticipated Discharge Date/Time: 11/04/23 13:11 Patient Disposition: Home, Self-Care Discharge Diagnosis: Enteritis Referrals: Jovon Benjamin MD [Physician] - 1 Week Physician,Kennedi Taylor [Primary Care Provider] - 1 Week Discharge Medications: No Action No Known Home Meds Discharge Orders: Discharge Order (Routine); Ordered 11/04/23 Ordered By: John Rodriguez Diet: Advance to usual diet Activity on Discharge: No heavy lifting Stand Alone Forms: Patient Portal Discharge page, Work/School Release Care Plan Goals: Baseline Health Concerns: None Plan of Treatment: Baseline Assessment: Stable Patient Instructions: Enteritis (GEN) Discharge Date/Time: 11/04/23 14:08
== END 2023-11-04 14:08 | disposition home or self-care (01) | DRG 249 ==
LOC: HO.ED 21:55 → HO.EDOVER 11-02 00:39 → HO.S3 11-02 07:36
PROVIDERS: Nurse Practitioner Family; Surgery; Admitting Provider Surgery; Emergency Provider Internal Medicine; Visit Provider Surgery
DX: K52.9 Noninfective gastroenteritis and colitis, unspecified (principal); Z87.761 Personal history of (corrected) gastroschisis
CPT/HCPCS: 36415; 74176; 74177; 80048; 80051; 80076; 81001; 81003; 81025; 83605; 85025; 99285; J0131; J1170; Q9967

== ENCOUNTER → 2023-11-01 22:58 | Outpatient (BNV) | payer OTHER, SELFPAY | PROVIDERS: Admitting Provider Surgery; Emergency Provider Internal Medicine; Visit Provider Physician Assistant Surgical | DX: K52.9 Noninfective gastroenteritis and colitis, unspecified (principal) | CPT/HCPCS: 99024; 99222; 99232 ==

== ENCOUNTER 2023-11-13 11:24 | Outpatient (AMB) | payer OTHER, SELFPAY ==
[2023-11-13 11:31] VITALS: PULSE 72; RESP 16; BMI 29.5
--- NOTE | 2023-11-13 11:31 | A.OFFVIS_ITS ---
Intake Vital Signs 11/13/23 11:31 Height 5 ft 6 in Weight 182 lb 8.684 oz BMI 29.5 Respiration 16 Pulse 72 Intake Visit Reasons: Small bowel obstruction, enteritis Intake Note: Patient is seen in office for ER follow up visit, following small bowel with partial bowel obstruction. Pt c/o: had cramps after ED visit, currently is feeling well, denies pain, nausea, vomit, diarrhea, constipation, no concerns ER: 11/01/23 Building Energy Consultant Required: No Accompanied by: Mother Allergies No Known Allergies Allergy (Unverified 11/13/23 11:32) Medication List - Last Reconciled 11/13/23 by Jovon Benjamin MD No Known Home Meds HPI HPI Comments History of Present Illness Details 23-year-old female returning for follow- up examination after recent admission for abdominal pain. She has a past medical history of gastroschisis and intestinal malrotation who presented to the emergency department on 11/02/2023 with abdominal pain. The pain was mainly in the lower abdomen but then became more diffuse. She tried taking MiraLax without much improvement. Initial workup revealed a mildly elevated WBC of 10.7. CT abdomen and pelvis showed dilated loops of small bowel with areas of wall thickening and edematous change the small-bowel mesentery. Also noted was the intestinal malrotation with the cecum located in the left lower quadrant. Over the next several days the pain improved and she was subsequently discharged to home on 11/05/2023. She returns today reporting no further abdominal pain or cramping. She is eating well and denies any nausea, vomiting, fever or chills. Her bowels are normal as well. [facility] Medical History (Updated 11/13/23 @ 11:43 by Jovon Benjamin MD) Intestinal malrotation Gastroschisis Social History Household Members: Family Housing: House Do you presently have visiting nurse or other home services: No Alcohol intake: current Alcohol intake frequency: a few times a week Alcohol type: wine Patient Tobacco Use Status: Never used Tobacco service: No Review of Systems Const All systems reviewed & are unremarkable except as noted in HPI and below Physical Exam Vital Signs: BMI result Body Mass Index 29.5 Const General: no acute distress Nutritional Appearance: well nourished Orientation/consciousness: patient oriented x3 Resp Effort & Inspection: normal respiratory effort, no audible wheezes, no cough and no respiratory distress GI Other: Soft, nondistended, nontender to deep palpation without rebound, guarding or rigidity. Skin General skin exam: no rashes or lesions noted Neuro General: patient oriented x3 Extrem General: Yes no clubbing, cyanosis or edema Assessment & Plan Assessment & Plan (1) Abdominal pain: Code(s): R10.9 - Unspecified abdominal pain Qualifiers: Abdominal location: generalized Qualified Code(s): R10.84 - Generalized abdominal pain Plan 23-year-old female patient found to have abdominal pain with small-bowel wall thickening and mesenteric edema recently admitted to the surgical service returning today feeling much improved with no further abdominal pain, nausea, vomiting, or difficulty with bowels. No further workup is required at this time. Should her symptoms return, I would recommend GI consultation. Coding Level of Care Code Est Pt Level 3 (31423) Diagnoses Generalized abdominal pain R10.84 Abdominal location: generalized
== END 2023-11-13 11:38 | disposition home or self-care (01) ==
PROVIDERS: Visit Provider Surgery
DX: R10.84 Generalized abdominal pain (principal)
CPT/HCPCS: 99213

== ENCOUNTER → 2023-11-13 11:24 | Outpatient (BNVA) | payer OTHER, SELFPAY | PROVIDERS: Visit Provider Surgery | DX: R10.84 Generalized abdominal pain (principal) | CPT/HCPCS: 99212 ==